=== PATIENT | female | born 1965 | race Hispanic/Latino ===

== ENCOUNTER → 2022-04-17 | Outpatient (CLI) | payer BC ==
[~2022-04-17] MED LIST: LACT1CAP78 PO; SYNTHROID PO; ZYRTD PO
== END | disposition home or self-care (01) ==
LOC: RAH 09:50
PROVIDERS: ATTEND Internal Medicine Gastroenterology
DX: R13.10 Dysphagia, unspecified (principal)
CPT/HCPCS: 74220

== ENCOUNTER → 2023-01-17 | Outpatient (CLI) | payer BC | END | disposition home or self-care (01) | LOC: RAH 09:15 | PROVIDERS: ATTEND Surgery | DX: K22.0 Achalasia of cardia (principal); K21.9 Gastro-esophageal reflux disease without esophagitis | CPT/HCPCS: 74240 ==

== ENCOUNTER → 2023-10-12 | Outpatient (CLI) | payer BC | END | disposition home or self-care (01) | LOC: RAH 11:06 | PROVIDERS: ATTEND Clinical Nurse Specialist Family Health | DX: M79.672 Pain in left foot (principal); L98.8 Other specified disorders of the skin and subcutaneous tissue | CPT/HCPCS: 73620 ==